=== PATIENT | female | born 1975 | race Caucasian/White ===

== ENCOUNTER 2020-10-31 09:22 | Emergency (ER) | payer OTHER, SELFPAY ==
[2020-10-31 09:23] VITALS: BP 163/92; PULSE 92; RESP 18; TEMP 36.1; O2SAT 99; BMI 51.7
[2020-10-31 09:35] VITALS: BP 163/92; PULSE 92; RESP 18; TEMP 36.1; O2SAT 99
--- NOTE | 2020-10-31 09:36 | CT_ITS ---
STUDY: CT ABDOMEN AND PELVIS WITHOUT CONTRAST REASON FOR EXAM: Female, 45 years old. Right flank pain. Nausea and vomiting. RADIATION DOSAGE (If Supplied By Facility): CTDIvol = ( 23.61 ) mGy, DLP = ( 1185.79 ) mGycm TECHNIQUE: Transaxial images were obtained from the dome of the diaphragm to the symphysis pubis without oral contrast, and without intravenous contrast. Sagittal and coronal images were reconstructed. Individualized dose optimization techniques were used for this CT. COMPARISON: None. FINDINGS: The visualized lung bases are unremarkable. The visualized portions of the heart are within normal limits. There is decreased attenuation of the liver consistent with steatosis. Normal gallbladder and extrahepatic biliary system. Normal spleen. Normal pancreas. Normal bilateral adrenal glands. Mild degree of right hydronephrosis. There is a 3 mm calculus in the proximal portion of the right ureter with a mild degree of right periureteric stranding. Normal left kidney. There is a small hiatal hernia. Normal small intestine. Normal colon. The appendix is visualized and appears normal. Normal abdominal aorta. Normal inferior vena cava. Normal retroperitoneum. Normal urinary bladder. Normal abdominal wall. Normal osseous structures. CT/Abdomen/Pelvis without Cont IMPRESSION: 3 mm calculus in the proximal portion of the right ureter causing a mild degree of right hydronephrosis and right perinephric stranding. Fatty infiltration of the liver. Electronically Signed: Bradley Sanford MD at 10:39 EDT , Service support ,
--- NOTE | 2020-10-31 09:45 | EDS_ITS ---
HPI History of Present Illness Chief Complaint: Flank Pain Informant: patient Narrative Narrative: Patient is a 45-year-old previously healthy female who presents to the emergency department for right-sided flank pain. This does radiate around to her groin. Started around 6 AM this morning. She states she does have a history of UTIs as well as does not feel similar. She has a history of kidney stones. She currently rates pain as a 9 out of 10. She does not take anything for it. No known aggravating relieving factors. She describes the pain as aching. She denies any urinary symptoms. No change in moving her bowels. She has been nauseous. She denies any fevers or chills. Only previous abdominal surgery was for section. No chest pain or shortness of breath. PFSH PFS Medical History (Updated 10/31/20 @ 10:[address] Bertin Guillen DO) Carpal tunnel syndrome of right wrist GERD (gastroesophageal reflux disease) Hypertension Home Medications hydrocodone-acetaminophen 1 tab PO Q6H PRN PRN 4 Days #12 tablet 10/31/20 [Rx Last Taken Unknown] metoprolol succinate 100 mg PO DAILY 10/31/20 [History Last Taken Unknown] naproxen 500 mg PO BID PRN #20 tab 10/31/20 [Rx Last Taken Unknown] ondansetron 4 mg PO Q8H PRN 3 Days #10 tab 10/31/20 [Rx Last Taken Unknown] pantoprazole 40 mg PO DAILY 10/31/20 [History Last Taken Unknown] Allergy/AdvReac Type Severity Reaction Status Date / Time TAPE Allergy NEEDS Uncoded 10/31/20 09:27 FOLLOW-UP Surgical History (Updated 10/31/20 @ 09:36 by Marlene Clements) History of carpal tunnel surgery History of delivery Social History Smoking Status: Never smoker ROS ROS ED Constitutional Constitutional ED: Denies chills or fever(s) Eyes Eyes: Denies change in vision ENT ENT ED: Denies epistaxis or rhinorrhea Cardiovascular Cardiovascular: Denies chest pain or palpitations Respiratory/Chest Respiratory/Chest: Denies cough, dyspnea or dyspnea on exertion Gastrointestinal Gastrointestinal: Reports abdominal pain and nausea; Denies diarrhea Genitourinary Genitourinary ED: Denies dysuria, hematuria or urinary frequency Musculoskeletal Musculoskeletal: Reports back pain; Denies neck pain Integumentary Denies rash Neurologic Neurologic: Denies dizziness, headache(s) or weakness EXAM Physical Exam Const Vital Signs: 10/31/20 09:23 10/31/20 09:35 Temperature 97 F L 97 F L Temperature Source Temporal Temporal Pulse Rate 92 92 Respiratory Rate 18 18 Blood Pressure 163/92 H 163/92 H Blood Pressure Mean 115 115 Pulse Ox 99 99 Oxygen Delivery Method Room Air Room Air Positive well nourished and well developed General Appearance ED: well developed and NAD HEENT Reports normocephalic, head/scalp atraumatic and moist mucous membranes Eyes PERRL and EOMs intact bilaterally Neck supple Chest Wall inspection of chest normal Resp normal respiratory effort and clear to auscultation bilaterally Auscultation: Negative for rales, rhonchi or wheezes Cardio regular rate, regular rhythm and no murmurs GI normal to inspection, nondistended, normoactive bowel sounds and non-tender Palpation: soft; Negative for guarding or rebound tenderness present Back/Spine no CVA tenderness Extremity normal to inspection General Extremety ED: Negative for edema or tenderness General Extremity: Negative for edema Neuro oriented x3, CN's II-XII intact bilaterally and no sensory deficits noted Sensorium / Orientation: alert Motor Exam: strength 5/5 throughout Psych mental status grossly normal Skin no rashes or lesions noted MDM MDM MDM Narrative Medical decision making narrative: Patient presents to the ED for flank pain. This is not reproducible on physical exam. She is hypertensive otherwise normal vital signs. I do have concern for kidney stone so CT scan of the abdomen/pelvis along with urinalysis being obtained. She is given a dose of IV Toradol. On reexamination patient is feeling much better. Urine does not show any evidence of infection but does show blood. CT scan is consistent with ureterolithiasis. This time she is stable for discharge. We will send a prescription for Naprosyn, [place] and Zofran. She is given urology referral if she does not pass the stone. Return precautions are reviewed with her. She understands and is agreeable to plan. All questions were answered. Lab Data Labs: Laboratory Results - last 24 hr 10/31/20 09:45 Urine Color Yellow Urine Clarity Sl. Cloudy Urine pH 6.0 Ur Specific [place] 1.030 Urine Protein 30 H Urine Glucose (UA) Normal Urine Ketones Negative Urine Occult Blood 250 H Urine Nitrite Negative Urine Bilirubin Negative Urine Urobilinogen Normal Ur Leukocyte Esterase Negative Urine RBC 50-100 SEEN Urine WBC 0-5 SEEN Ur Squamous Epith Cells 0-5 SEEN Urine Bacteria 0 SEEN Urine Mucus 0 SEEN Urine Test Negative Radiography Diagnostic Testing: Radiology Impression Abdomen/Pelvis CT 10/31/20 09:36 IMPRESSION: 3 mm calculus in the proximal portion of the right ureter causing a mild degree of right hydronephrosis and right perinephric stranding. Fatty infiltration of the liver. Electronically Signed: Bradley Sanford MD at 10:39 EDT , Service support , Discharge Plan Triage Chief Complaint: Flank Pain ED Provider: Bertin Guillen Dx/Rx/DC Orders Clinical Impression: Kidney stone on right side Instructions: ED Kidney Stone w/ Colic Prescriptions: New naproxen 500 MG tablet 500 mg PO BID PRN Qty: 20 RF: 0 hydrocodone-acetaminophen 5-325 mg tablet 1 tab PO Q6H PRN PRN (Reason: Pain) 4 Days Qty: 12 RF: 0 ondansetron 4 mg tablet,disintegrating 4 mg PO Q8H PRN (Reason: nausea and vomiting) 3 Days Qty: 10 RF: 0 No Action metoprolol succinate 100 mg Tablet Extended Release 24 Hr 100 mg PO DAILY RF: 0 pantoprazole 40 mg Tablet,Delayed Release (Dr/Ec) 40 mg PO DAILY RF: 0 Referrals: Kandace Yin [Other] Weston Alfonso MD [STAFF PHYSICIAN] - 3-5 Days Disposition Disposition: Home, Self Care
[2020-10-31] MEDS: Ketorolac 30 MG/ML Syringe IV (09:48)
[2020-10-31 09:53] LABS: Bacteria 0 SEEN /hpf (None Seen); Mucous, Urine 0 SEEN /hpf (<or=2+)
[2020-10-31 09:59] LABS: Color, Urine Yellow (Yellow); Glucose, Dipstick Normal (Normal); Ketone-Dipstick Negative (Negative); Leukocyte Esterase-Dipstick Negative /ul (Negative); Nitrite-Dipstick Negative (Negative); Occult Blood-Urine 250 /ul (Negative); Protein-Dipstick 30 mg/dl (Negative); Urine Bilirubin Dipstick Negative (Negative); Urine Clarity Sl. Cloudy (Clear); Urine Urobilinogen Normal (Normal)
[2020-10-31] MEDS: Ondansetron 4 MG/2 ML Vial IV (09:59)
[2020-10-31 10:11] LABS: Red Blood Cells-Urine 50-100 SEEN /hpf (0-5); Squamous Epithelial Cells - UA 0-5 SEEN /hpf (5-10)
[2020-10-31 10:12] LABS: Internal QC Validated? YES +Cl - CLEAR BKGD; Pregnancy, Urine Negative Negative; White Blood Cells 0-5 SEEN /hpf (0-5)
[2020-10-31 10:49] VITALS: BP 149/79; PULSE 79; RESP 18; TEMP 37; O2SAT 98
== END 2020-10-31 10:50 | disposition home or self-care (01) ==
PROVIDERS: Emergency Provider Emergency Medicine
DX: N20.0 Calculus of kidney (principal); I10 Essential (primary) hypertension; K21.9 Gastro-esophageal reflux disease without esophagitis; Z79.899 Other long term (current) drug therapy; Z87.440 Personal history of urinary (tract) infections; Z87.442 Personal history of urinary calculi
CPT/HCPCS: 74176; 81001; 81025; 96374; 96375; 99282; A4216; J2405